=== PATIENT | male | born 1970 | race Caucasian/White ===

== ENCOUNTER 2018-02-10 08:46 | Emergency (ER) | payer MEDICARE ==
[~2018-02-10] VITALS: Ht 177.8 cm; Wt 110.0 kg
[~2018-02-10 08:46] MED LIST: AMOXICILLIN500 MG PO; APAP/HYDRO325 MG/10; ATENOLOL50 MG; ATENOLOL50 MG PO; AUGMENTIN875 MG OR; BENADRYL 25MG C25 MG PO; BENTYL20 MG OR; BUSPAR10 MG PO; BUTRANS10 MCG/HR TD; CELEBREX200 MG OR; CEPHALEXIN500 MG PO; CORTISPORIN OTI10 ML AS; CYMBALTA30 MG PO; CYMBALTA60 MG OR; DARVOCET-N 100100 MG OR; DOXYCYC MONO100 M1 OR; EFFEXOR XR37.5 MG OR; EFFEXOR75 MG OR; EXCEDRI1 OR; FLEXERIL OR; GEODON60 MG OR; HALDOL1 M1 PO; KLONOPIN0.5 MG PO; KLONOPIN1 MG OR; KLONOPIN1 MG PO; KLONOPIN2 MG OR; LASIX20 MG PO; LISINOPRIL20 MG OR; LORTAB 10 OR; LORTAB 10 PO; LORTAB 1010 MG PO; LORTAB 5 OR; LORTAB 5/3255 MG PO; LORTAB 7.5 OR; LORTAB 7.5 PO; LORTAB5 PO; LYRICA150 MG OR; LYRICA75 MG OR; MEDDOSEPAK OR; MELOXICAM7.5 MG OR; METHADONE10 M1 PO; MS CONTIN ER15 MG PO; MS CONTIN30 MG PO; MUPIROCIN2 % EX; NEURONTIN100 MG OR; NORCO1 TAB OR; NORCO1 TAB PO; ONDANSETRON4 MG PO; OXYCODONE HCL15 MG PO; OXYCODONE30 MG OR; PENICILLN VK500 M1 PO; PENICILLN VK500 MG OR; PENICILLN VK500 MG PO; PERCOCET 5/325M1 TAB OR; PERCOCET 5/325M1 TAB PO; QC IBUPROFEN200 MG OR; RESTORIL15 M1 OR; RESTORIL15 MG OR; ROBAXIN OR; SEPTRA DS1 TAB OR; TORADOL PO; TRAZODONE50 MG OR; ULTRACET OR; ULTRAM50 MG OR; VEETIDS250 MG OR; VICODIN ES1 TAB OR; VISTARIL 50MG C50 MG OR; VOLTAREN75 MG OR; ZOFRAN4 MG OR; ZOLOFT50 MG PO; ZONEGRAN100 M1 OR
[2018-02-10] MEDS ORDERED: GLIPIZIDE5 MG PO (09:51)
[2018-02-10] MEDS ORDERED: METFORMIN500 MG PO (09:51)
[2018-02-10 10:01] LABS: IMMATURE GRANULOCYTES 0.6 % (0.0-5.0); MEAN CORPUSCULAR HGB 25.8 pG CALC (26.0-32.0); MEAN CORPUSCULAR HGB CONC 31.8 g/L CALC (32.0-36.0); NEUT# 15.77 thou/uL (1.82-7.42); RED BLOOD COUNT 6.33 mill/uL (4.70-6.10); RED CELL DISTRI WIDTH 13.9 % (11.5-15.5)
[2018-02-10 10:02] LABS: HEMATOCRIT 51.3 % (39.0-50.0); HEMOGLOBIN 16.3 g/dl (14.0-18.0)
[2018-02-10 10:19] LABS: ALBUMIN 4.9 g/dL (3.2-5.0); ALKALINE PHOSPHATASE 92 u/l (38-126); ANION GAP 21 (6-22 (CALC)); BILIRUBIN, TOTAL 0.8 mg/dL (0.0-1.4); BUN 20 mg/dL (9-20); BUN/CREATININE RATIO 17 (12-20 (CALC)); CARBON DIOXIDE 23 mmol/l (22-30); CHLORIDE 99 mmol/l (95-108); CREATININE 1.2 mg/dL (0.7-1.3); GFR > 60 ML/MIN (>=60 (CALC)); GFR FOR AFR.AMER. > 60 ML/MIN (>=60 (CALC)); LIPASE 111 u/l (23-300); POTASSIUM 4.8 mmol/l (3.5-5.1); SGOT/AST 48 u/l (17-59); SODIUM 138 mmol/l (137-146)
[2018-02-10 10:20] LABS: TOTAL PROTEIN 8.7 g/dL (6.3-8.2)
[2018-02-10 12:52] LABS: COCAINE NEGATIVE (NEGATIVE); TETRAHYDROCANNABIONOL NEGATIVE (NEGATIVE)
[2018-02-10 12:53] LABS: BARBITURATES NEGATIVE (NEGATIVE); METHADONE NEGATIVE (NEGATIVE); OXCYCODONE POSITIVE (NEGATIVE); TRICYLIC ANTIDEPRESSANTS POSITIVE (NEGATIVE)
[2018-02-10] MEDS ORDERED: ONDANSETRON4 MG PO (15:31)
[2018-02-10] MEDS ORDERED: METRONIDAZOL250 MG PO (15:31)
[2018-02-10] MEDS ORDERED: BENTYL10 MG PO (15:31)
[2018-02-10 15:38] VITALS: BP 116/71
== END 2018-02-10 15:50 | disposition home or self-care (01) ==
LOC: ED 08:46
PROVIDERS: Emergency Medicine
DX: R19.7 Diarrhea, unspecified (principal); R11.0 Nausea; R10.31 Right lower quadrant pain
CPT/HCPCS: Q9967

== ENCOUNTER → 2018-03-25 | Outpatient (REF) | payer MEDICARE ==
[~2018-03-25] MED LIST changes: +BENTYL10 MG PO; +GLIPIZIDE5 MG PO; +METFORMIN500 MG PO; +METRONIDAZOL250 MG PO
[2018-03-25 11:22] LABS: IMMATURE GRANULOCYTES 0.4 % (0.0-5.0); MEAN CELL VOLUME 81.3 fL CALC (80.0-100.0); MEAN CORPUSCULAR HGB 25.7 pG CALC (26.0-32.0); MEAN CORPUSCULAR HGB CONC 31.7 g/L CALC (32.0-36.0); NEUT# 9.53 thou/uL (1.82-7.42); RED BLOOD COUNT 5.44 mill/uL (4.70-6.10); RED CELL DISTRI WIDTH 14.5 % (11.5-15.5)
[2018-03-25 11:25] LABS: HEMATOCRIT 44.2 % (39.0-50.0)
[2018-03-25 12:07] LABS: ALBUMIN 4.4 g/dL (3.2-5.0); BILIRUBIN, TOTAL 0.7 mg/dL (0.0-1.4); CHOLESTEROL HDL RATIO 4.6 (<4.4 (CALC)); POTASSIUM 4.7 mmol/l (3.5-5.1); TOTAL PROTEIN 7.4 g/dL (6.3-8.2)
== END | disposition home or self-care (01) ==
LOC: LAB 10:44
PROVIDERS: ATTEND Physician Assistant Medical
DX: R53.83 Other fatigue (principal); E55.9 Vitamin D deficiency, unspecified; E11.9 Type 2 diabetes mellitus without complications; E78.1 Pure hyperglyceridemia; M79.675 Pain in left toe(s)

== ENCOUNTER → 2018-03-26 | Outpatient (REF) | payer MEDICARE ==
[2018-03-26 10:24] LABS: URINE BILIRUBIN - DIPSTICK NEGATIVE (NEGATIVE); URINE BLOOD DIPSTICK NEGATIVE (NEGATIVE); URINE COLOR YELLOW; URINE GLUCOSE - DIPSTICK NEGATIVE (NEGATIVE); URINE KETONE NEGATIVE (NEGATIVE); URINE LEUK ESTERASE NEGATIVE (NEGATIVE); URINE NITRITE - DIPSTICK NEGATIVE (Negative); URINE PH 5.5 (4.5-8.0); URINE PROTEIN - DIPSTICK NEGATIVE (NEG-TRACE); URINE SPECIFIC GRAVITY 1.025; URINE UROBILINOGEN - DIPSTICK 0.2 E.U./dL (0.2)
== END | disposition home or self-care (01) ==
LOC: LABSPEC 10:15
PROVIDERS: ATTEND Physician Assistant Medical
DX: E11.9 Type 2 diabetes mellitus without complications (principal)

== ENCOUNTER → 2018-05-02 | Outpatient (REF) | payer MEDICARE ==
[2018-05-02 14:05] LABS: ALBUMIN 4.2 g/dL (3.2-5.0); ALKALINE PHOSPHATASE 83 u/l (38-126); ANION GAP 15 (6-22 (CALC)); BILIRUBIN, TOTAL 0.5 mg/dL (0.0-1.4); BUN 10 mg/dL (9-20); BUN/CREATININE RATIO 10 (12-20 (CALC)); CARBON DIOXIDE 27 mmol/l (22-30); CHLORIDE 98 mmol/l (95-108); POTASSIUM 4.3 mmol/l (3.5-5.1); SGOT/AST 50 u/l (17-59); SODIUM 136 mmol/l (137-146); TOTAL PROTEIN 7.3 g/dL (6.3-8.2)
[2018-05-02 14:06] LABS: GFR > 60 ML/MIN (>=60 (CALC)); GFR FOR AFR.AMER. > 60 ML/MIN (>=60 (CALC))
== END | disposition home or self-care (01) ==
LOC: LAB 12:14
PROVIDERS: ATTEND Nurse Practitioner Family
DX: R79.89 Other specified abnormal findings of blood chemistry (principal)

== ENCOUNTER 2019-01-05 14:44 | Emergency (ER) | payer MEDICARE ==
[~2019-01-05] VITALS: Ht 177.8 cm; Wt 110.0 kg
[2019-01-05] MEDS ORDERED: ALLOPURINOL300 MG PO (15:03)
[2019-01-05] MEDS ORDERED: TRAZODONE50 MG PO (15:03)
[2019-01-05] MEDS ORDERED: MOBIC7.5 M1 PO (15:04)
[2019-01-05 15:24] LABS: HEMATOCRIT 38.9 % (39.0-50.0); HEMOGLOBIN 12.6 g/dl (14.0-18.0); IMMATURE GRANULOCYTES 0.9 % (0.0-5.0); MEAN CELL VOLUME 79.7 fL CALC (80.0-100.0); MEAN CORPUSCULAR HGB 25.8 pG CALC (26.0-32.0); MEAN CORPUSCULAR HGB CONC 32.4 g/L CALC (32.0-36.0); NEUT# 7.62 thou/uL (1.82-7.42); RED BLOOD COUNT 4.88 mill/uL (4.70-6.10); RED CELL DISTRI WIDTH 13.2 % (11.5-15.5)
[2019-01-05 15:41] LABS: ANION GAP 14 (6-22 (CALC)); BUN 7 mg/dL (9-20); BUN/CREATININE RATIO 8 (12-20 (CALC)); CARBON DIOXIDE 28 mmol/l (22-30); CHLORIDE 93 mmol/l (95-108); CREATININE 0.9 mg/dL (0.7-1.3); GFR > 60 ML/MIN (>=60 (CALC)); GFR FOR AFR.AMER. > 60 ML/MIN (>=60 (CALC))
[2019-01-05 15:42] LABS: SODIUM 131 mmol/l (137-146)
[2019-01-05 16:29] VITALS: BP 108/73
== END 2019-01-05 16:29 | disposition home or self-care (01) ==
LOC: ED 14:44
PROVIDERS: Family Medicine
DX: R07.9 Chest pain, unspecified (principal); E11.9 Type 2 diabetes mellitus without complications; I10 Essential (primary) hypertension; Z79.84 Long term (current) use of oral hypoglycemic drugs

== ENCOUNTER 2019-11-24 10:10 | Inpatient (IN) | payer MEDICARE ==
[2019-11-24] VITALS (10 sets, daily range): BP systolic 99–122; BP diastolic 56–75
[~2019-11-24] VITALS: Ht 177.8 cm; Wt 120.8 kg
[~2019-11-24 10:10] MED LIST changes: +ALLOPURINOL300 MG PO; +MOBIC7.5 M1 PO; +TRAZODONE50 MG PO
--- NOTE | 2019-11-24 10:16 | NUR ---
PATIENT TO ROOM VIA WHEELCHAIR.
--- NOTE | 2019-11-24 10:36 | NUR ---
PT HYPOTENSIVE, PLACED IN [place] AND IVF BOLUS INITIATED. PT C/O INCREASED NAUSEA. NEW ORDERES RECEIVED
[2019-11-24 11:16] LABS: IMMATURE GRANULOCYTES 0.9 % (0.0-5.0); MEAN CELL VOLUME 78.3 fL CALC (80.0-100.0); MEAN CORPUSCULAR HGB 24.6 pG CALC (26.0-32.0); MEAN CORPUSCULAR HGB CONC 31.4 g/dL CAL (32.0-36.0); NEUT# 23.09 thou/uL (1.82-7.42); RED CELL DISTRI WIDTH 16.4 % (11.5-15.5)
[2019-11-24 11:27] LABS: ALBUMIN 5.3 g/dL (3.2-5.0); ALKALINE PHOSPHATASE 124 u/l (38-126); AMYLASE 114 u/l (30-110); ANION GAP 28 (6-22 (CALC)); BILIRUBIN, TOTAL 0.9 mg/dL (0.0-1.4); BUN 12 mg/dL (9-20); BUN/CREATININE RATIO 6 (12-20 (CALC)); CARBON DIOXIDE 20 mmol/l (22-30); CHLORIDE 94 mmol/l (95-108); CREATININE 1.9 mg/dL (0.7-1.3); GFR 38 ML/MIN (>=60 (CALC)); GFR FOR AFR.AMER. 46 ML/MIN (>=60 (CALC)); LIPASE 351 u/l (23-300); POTASSIUM 4.5 mmol/l (3.5-5.1); SGOT/AST 36 u/l (17-59); SODIUM 137 mmol/l (137-146); TOTAL PROTEIN 9.4 g/dL (6.3-8.2)
[2019-11-24 11:29] LABS: HEMATOCRIT 54.8 % (39.0-50.0); HEMOGLOBIN 17.2 g/dl (14.0-18.0)
[2019-11-24 11:39] LABS: MYOGLOBIN 253 ng/mL (0 - 121)
[2019-11-24] MEDS ORDERED: RYBELSUS14 MG PO (11:58)
[2019-11-24] MEDS ORDERED: GLIMEPIRIDE4 MG PO (11:59)
[2019-11-24] MEDS ORDERED: LEVEMIR100 UNIT/M SC (12:00)
[2019-11-24] MEDS ORDERED: CHLORPROMAZINE50 M1 PO (12:00)
[2019-11-24] MEDS ORDERED: MOVANTIK25 MG PO (12:00)
[2019-11-24] MEDS ORDERED: TRAZODONE100 MG PO (12:01)
[2019-11-24] MEDS ORDERED: GABAPENTIN600 MG PO (12:02)
[2019-11-24] MEDS ORDERED: TRULICITY1.5 MG/0.5 SC (12:02)
[2019-11-24] MEDS ORDERED: OXYCODONE20 M1 PO (12:02)
[2019-11-24] MEDS ORDERED: MELOXICAM7.5 MG PO (12:03)
[2019-11-24] MEDS ORDERED: TIZANIDINE HCL4 MG PO (12:04)
[2019-11-24] MEDS ORDERED: LISINOPRIL5 MG PO (12:04)
[2019-11-24] MEDS ORDERED: ALLOPURINOL100 MG PO (12:04)
--- NOTE | 2019-11-24 12:19 | NUR ---
PT STATES PAIN TO ABD IS 2/10 AND DENEIS NAUSEA AT THIS TIME. A FEW ICE CHIPS GIVEN
--- NOTE | 2019-11-24 12:25 | NUR ---
ACCUCHECK 336, PT REMAINS HYPOTENSIVE BUT STATES HE IS FEELING MUCH BETTER. IVF BOLUS CONTINUES. DR VELASCO UPDATED ON FINDINGS. MTOHER AT BEDSIDE.
--- NOTE | 2019-11-24 13:00 | NUR ---
PATIENT BP 85/64. DR VELASCO NOTIFIED. PATIENT RESTING IN STRETCHER IN NAD AND DENIES ANY NEEDS.
[2019-11-24 13:07] LABS: URINE BLOOD DIPSTICK SMALL (NEGATIVE); URINE COLOR YELLOW; URINE GLUCOSE - DIPSTICK 100 mg/dL (NEGATIVE); URINE KETONE TRACE mg/dL (NEGATIVE); URINE LEUK ESTERASE NEGATIVE (NEGATIVE); URINE NITRITE - DIPSTICK NEGATIVE (Negative); URINE PROTEIN - DIPSTICK 100 mg/dL (NEG-TRACE); URINE UROBILINOGEN - DIPSTICK 0.2 E.U./dL (0.2)
[2019-11-24 13:12] LABS: URINE BILIRUBIN - DIPSTICK SMALL (NEGATIVE); URINE RBC 0-2 RBC/hpf (0-5)
[2019-11-24 13:13] LABS: URINE EPITHELIAL CELLS FEW EPI/hpf (0-FEW); URINE MUCUS MODERATE hpf (NONE-FEW)
--- NOTE | 2019-11-24 13:51 | NUR ---
PT STATES ABD DISCOMFORT 2/10 AND NAUSEA IS RELEIVED. ADVISED OF NPO ADMIT STATUS. BP 100/57. SKIN PWD. PT IN NO DISTRESS
--- NOTE | 2019-11-24 14:38 | NUR ---
Admission Note Report Given to: SBAR PRINTED TO FLOOR Transported by: Wheelchair X Stretcher Transported with: X Nurse Transporter X Patent IV O2 X Neurology Manager Location: X ICU MS2
--- NOTE | 2019-11-24 14:40 | NUR ---
TRANSPORTED TO ICU ON THERAPEUTIC SUPPORT STAFF IN NO DISTRESS
--- NOTE | 2019-11-24 14:45 | NUR ---
PT ADMITTED TO ICU BED 4 FROM ED FOR DX:SBO,HYPOTENSION,DM,LEUKOCYTOSIS. PT TRANSPORTED TO ROOM VIA STRETCHER, PT STOOD AND TRANSFERRED SELF WITH SLOW STEADY GAIT. PT SR ON TELEMETRY, HR 95. PT DENIES SOB, CP OR DISTRESS AT THIS TIME. REMAINS HYPOTENSIVE B/P 99/67. AFEBRILE. RESPIRATIONS EVEN/UNLABORED, LS CLEAR THROUGHOUT, SA02@97%RA. ABDOMEN SOFT/DISTENDED/TENDER LLQ. BSX4 HYPOACTIVE. LBM 10-12-20. PT REPORTS ABDOMEN PAIN 6/10, AND NAUSEA PERSISTS. PT ORIENTED TO ROOM, CALL LIGHT AND UNIT. CALL LIGHT IN REACH. WILL MONITOR.
--- NOTE | 2019-11-24 16:00 | NUR ---
JASBIR PRUETT AT BEDSIDE FOR ASSESSMENT AND TO DISCUSS PLAN OF CARE, NEW ORDERS PT ALLOWED ICE CHIPS AND SIPS OF WATER FOR MEDICATION.
--- NOTE | 2019-11-24 18:00 | NUR ---
PT MOTHER ARRIVED AT BEDSIDE FOR VISIT. PT RESTING IN BED, STATED HIS PAIN WAS MUCH BETTER NOW, DENIES NAUSEA AT THIS TIME. CALL LIGHT IN REACH. WILL MONITOR.
--- NOTE | 2019-11-24 18:52 | NUR ---
PATIENT'S MOTHER HAS LEFT BEDSIDE.
--- NOTE | 2019-11-24 19:10 | NUR ---
PATIENT IS AWAKE, ALERT AND ORIENTED X4. ON RA, NO SOB NOTED. COMPLAINS OF PAIN IN ABDOMEN, RATES 5/10, DOES NOT REQUEST PAIN MEDICATION AT THIS TIME. COMPLAINS OF NAUSEA, REQUESTS ICE CHIPS, REPORTS IT HELPS WITH HIS NAUSEA. NURSE ASSESSMENT PERFORMED. IV X2 INTACT, FLUSH PROPERLY. NS INFUSING AT 100 ML/HR. AFEBRILE. ST ON TELEMETRY 104 BPM. BP 120'S SYSTOLIC. POC DISCUSSED FOR TONIGHT, PATIENT UNDERSTANDS AND AGREES. WATCHES TV, ICE CHIPS WILL BE PROVIDED. CALL LIGHT WITHIN REACH. SELF REPOSITIONS.
--- NOTE | 2019-11-24 20:10 | NUR ---
PATIENT IN SANDOVAL'S POSITION IN BED. WATCHES TV, NO ACUTE DISTRESS SHOWN. NO COMPLAINTS OR NEEDS AT THIS TIME. CALL LIGHT WITHIN REACH. BP WNL.
--- NOTE | 2019-11-24 20:10 | NUR ---
patient in rodriguez's position. watches tv, no acute distress shown. no complaints or needs at this time. call light within reach.
--- NOTE | 2019-11-24 20:47 | NUR ---
accucheck obtained 155 mg/dl. patient requests to have iv prn pain medication and nausea iv medication, will provide with bedtime medications.
--- NOTE | 2019-11-24 21:15 | NUR ---
iv dilaudid and iv zofran provided per request. patient able to swallow po meds without difficulty. lovenox provided, patient tolerated well. pt at first complained that the dilaudid iv was making him itch all over his body, and that he wanted benadryl. i let him know i would notify the doctor and might possibly change pain medication, then he reported it was not the iv dilaudid, that it was the zofran and that he has always had dilaudid in the past, he also said he was not sure that it could be the dressing on the iv's, i explained the dressing is to keep the iv site from bacteria/infection. he understands and agrees.
--- NOTE | 2019-11-24 21:24 | NUR ---
i have called and spoke to [facility] to notify of patient's complaint of itchiness after medications, maria c de dios will order medication for itchiness. also ordered if patient begins to vomit he will need an ng tube. also let him know of patient's blood sugar tonight and that levemir was held.
--- NOTE | 2019-11-24 23:13 | NUR ---
DR KENDRICK CALLED HERE FOR UPDATES OF PATIENT. UPDATES GIVEN. WILL CONTINUE TO MONITOR.
[2019-11-25] VITALS (8 sets, daily range): BP systolic 92–127; BP diastolic 57–87
--- NOTE | 2019-11-25 00:50 | NUR ---
PATIENT ABLE TO SWALLOW MEDICATIONS. SOFRAN GIVEN PER REQUEST. NO OTHER COMPLAINTS. SIP OF WATER AND ICE CHIPS PROVIDED. CALL LIGHT WITHIN REACH. EDUACTED ON NEW ANTIBITOIC ORDERED.
--- NOTE | 2019-11-25 03:59 | NUR ---
PATIENT RESTS WITH EYES CLOSED. NO ACUTE DISTRESS SHOWN. CALL LIGHT WITHIN REACH.
--- NOTE | 2019-11-25 05:09 | NUR ---
PT ABLE TO TOLERATE LAB WORK THIS AM.
[2019-11-25 05:27] LABS: IMMATURE GRANULOCYTES 0.6 % (0.0-5.0); MEAN CELL VOLUME 80.9 fL CALC (80.0-100.0); MEAN CORPUSCULAR HGB 24.6 pG CALC (26.0-32.0); MEAN CORPUSCULAR HGB CONC 30.4 g/dL CAL (32.0-36.0); NEUT# 7.07 thou/uL (1.82-7.42); RED BLOOD COUNT 5.29 mill/uL (4.70-6.10); RED CELL DISTRI WIDTH 14.7 % (11.5-15.5)
[2019-11-25 05:30] LABS: HEMATOCRIT 42.8 % (39.0-50.0)
[2019-11-25 05:47] LABS: BILIRUBIN, TOTAL 0.6 mg/dL (0.0-1.4); BUN 14 mg/dL (9-20); BUN/CREATININE RATIO 12 (12-20 (CALC)); CREATININE 1.1 mg/dL (0.7-1.3); GFR > 60 ML/MIN (>=60 (CALC)); GFR FOR AFR.AMER. > 60 ML/MIN (>=60 (CALC)); MAGNESIUM 1.7 mg/dL (1.6-2.3); POTASSIUM 4.5 mmol/l (3.5-5.1); SGOT/AST 33 u/l (17-59); SODIUM 138 mmol/l (137-146)
[2019-11-25 05:48] LABS: ALBUMIN 3.5 g/dL (3.2-5.0); ALKALINE PHOSPHATASE 54 u/l (38-126); ANION GAP 10 (6-22 (CALC)); CARBON DIOXIDE 25 mmol/l (22-30); CHLORIDE 108 mmol/l (95-108); TOTAL PROTEIN 6.4 g/dL (6.3-8.2)
--- NOTE | 2019-11-25 06:11 | NUR ---
PATIENT AWAKENS EASILY WHEN SPOKEN TO. ABLE TO SWALLOW HIS AM MEDS. REFUSES AT THIS TIME TO SIT UP TO USE URINAL. I CHECKED PELVIC REGION FOR ANY TENDERNESS, WHEN PALPATING PAIENT REPORTS HE HAS TO VOID, WHEN ASKED TO SIT UP TO VOID, HE REFUSES, STATES, "NOT RIGHT NOW." ZOFRAN GIVEN FOR NAUSEA. RATE PAIN 4/10 IN ABDOMEN. NO OTHER NEEDS OR COMPLAINTS AT THIS TIME. CALL LIGHT WITHIN REACH.
--- NOTE | 2019-11-25 07:00 | NUR ---
PT REPORT RECEIVED FROM PAINTER BARREL
--- NOTE | 2019-11-25 07:34 | NUR ---
PT STATES PASSING "GAS" BUT DOESNT FEEL THE URGE TO HAVE BM AT THIS TIME, PT DENIES ANY VOMITING OR NAUSEA, DENIES ANY PAIN AT THIS TIME
--- NOTE | 2019-11-25 08:26 | NUR ---
AFTER KENDRICK EXAMS PT, AND IF PT IS CLEARED WILL START PT ON CLEAR LIQUID DIET AT THIS TIME WILL KEEP HIM NPO. ABDOMEN SOFT NON TENDER
--- NOTE | 2019-11-25 09:20 | NUR ---
PT RESTING QUIETLY ON STRETCHER, NO COMPLAINTS AT THIS TIME. MEDICATIONS GIVEN WITH SIPS OF WATER, ADVISED OF CONTINUED NPO UNTIL SEEN BY DR. KENDRICK.
--- NOTE | 2019-11-25 09:33 | NUR ---
DR. KENDRICK HERE FOR EXAM
--- NOTE | 2019-11-25 09:50 | NUR ---
PT REQUESTING HIS DILAUDID FOR PAIN FOR HIS BACK
--- NOTE | 2019-11-25 09:51 | NUR ---
[address] URINE OUT
--- NOTE | 2019-11-25 11:00 | NUR ---
PT RESTING WATCHING TV, STATES NO NAUSEA/NO VOMITING, STILL DOES NOT FEEL LIKE HAVING A BM. ASKED FOR MORE ICE CHIPS. ALERT/ORIENTED X3.
--- NOTE | 2019-11-25 12:30 | NUR ---
PT SLEEPING AT THIS TIME, SANTIAGO NAUSEA. FLUIDS INFUSING
--- NOTE | 2019-11-25 13:35 | NUR ---
PT TAKEN TO CT. SCAN PER W/C, PT ALERT/ORIENTED X3, NO PAIN AT THIS TIME
--- NOTE | 2019-11-25 14:04 | NUR ---
PT SITTING UP IN BED, TALKING ON PHONE, NO DISCOMFORT NOTED. IV FLUIDS INFUSING, PT GIVEN ICE CHIPS PER REQUEST. VITAL SIGNS STABLE.
--- NOTE | 2019-11-25 15:05 | NUR ---
PT RESTING QUIETLY ON STRETCHER, WAITING FOR CT. SCAN RESULTS
--- NOTE | 2019-11-25 15:21 | NUR ---
PT STATES HIS BACK IS STARTING TO HURT AGAIN, ADVISED NOT TIME FOR HIS PAIN MEDICATION, HE STATES HE WILL JUST GO TO SLEEP THEM UNTIL IT IS LATER AND MIGHT BE TIME FOR HIS PAIN MEDICATION
--- NOTE | 2019-11-25 15:38 | NUR ---
MOTHER HERE TO VISIT AND BRING MEDICATION. PER REQUEST OF PHARMACY.
--- NOTE | 2019-11-25 16:15 | NUR ---
PT RESTING QUIETLY ON BED, MOTHER AT BEDSIDE, NO COMPLAINTS AT THIS TIME
--- NOTE | 2019-11-25 17:16 | NUR ---
PT STATES IS GETTING HUNGRY, WANTING TO KNOW RESULTS OF CAT SCAN, ADVISED THAT RESULTS HAVE NOT COME BACK. CALLED CT AND THEY SAID IT WAS PLACED ROUTINE AND COULD BE SEVERAL HOURS MORE BEFORE RESULTS COME BACK
--- NOTE | 2019-11-25 18:22 | NUR ---
PT RESTING QUIETLY ON STRETCHER, WATCHING TV, VITAL SIGNS STABLE
--- NOTE | 2019-11-25 19:45 | NUR ---
awakens easily. nad. no n/v. sheet metal technician shows sinus tach hr 101. #20 lt hand saline lock. #20 rac ns infusing @ 100cchr. cup of ice chips, juice x2 & diet lemon [place] soda given per request. voids per urinal. fall precautions cont.
--- NOTE | 2019-11-25 22:00 | NUR ---
watching tv. no c/o voiced.
[2019-11-26] VITALS (8 sets, daily range): BP systolic 110–134; BP diastolic 67–79
--- NOTE | 2019-11-26 00:01 | NUR ---
awakens immediately then c/o pain. medicated as ordered.
--- NOTE | 2019-11-26 02:00 | NUR ---
resting quietly. resps even & unlabored. no apparent distress.
--- NOTE | 2019-11-26 04:00 | NUR ---
eyes closed. no apparent distress. cardiac care nurse shows sinus rhythm hr 86.
--- NOTE | 2019-11-26 05:25 | NUR ---
lab here. blood drawn.
[2019-11-26 05:39] LABS: HEMATOCRIT 43.9 % (39.0-50.0); HEMOGLOBIN 13.2 g/dl (14.0-18.0); IMMATURE GRANULOCYTES 0.5 % (0.0-5.0); MEAN CELL VOLUME 81.4 fL CALC (80.0-100.0); MEAN CORPUSCULAR HGB 24.5 pG CALC (26.0-32.0); MEAN CORPUSCULAR HGB CONC 30.1 g/dL CAL (32.0-36.0); NEUT# 3.92 thou/uL (1.82-7.42); RED BLOOD COUNT 5.39 mill/uL (4.70-6.10); RED CELL DISTRI WIDTH 14.6 % (11.5-15.5)
[2019-11-26 05:56] LABS: ALBUMIN 3.4 g/dL (3.2-5.0); ALKALINE PHOSPHATASE 61 u/l (38-126); ANION GAP 9 (6-22 (CALC)); BILIRUBIN, TOTAL 0.4 mg/dL (0.0-1.4); BUN 7 mg/dL (9-20); BUN/CREATININE RATIO 7 (12-20 (CALC)); CARBON DIOXIDE 27 mmol/l (22-30); CHLORIDE 107 mmol/l (95-108); GFR > 60 ML/MIN (>=60 (CALC)); GFR FOR AFR.AMER. > 60 ML/MIN (>=60 (CALC)); POTASSIUM 4.2 mmol/l (3.5-5.1); SGOT/AST 26 u/l (17-59); SODIUM 139 mmol/l (137-146); TOTAL PROTEIN 6.2 g/dL (6.3-8.2)
--- NOTE | 2019-11-26 06:45 | NUR ---
REPORT RECEIVED FROM BOBBY LOJA. CARE ASSUMED.
--- NOTE | 2019-11-26 07:00 | NUR ---
PT RESTING IN BED WITH EYES CLOSED. PT AROUSES TO VERBAL STIMULI. PT IS ALERT AND ORIENTED X3. SHIFT ASSESSMENT COMPLETED AT THIS TIME. IV PATENT X2. PT HAS MULTIPLE JUICES AND DIET SODAS EMPTY AT BEDSIDE. EDUCATED PT ON AMOUNT OF SUGAR IN JUICE. PT QUESTIONING DIVERTICULOCIS. EDUCATION PROVIDED WELL. PT STATES THAT HIS PAIN IS A 7/10 DID NOT REQUEST ANY PAIN MEDICATION AT THIS TIME. CALL LIGHT IN REACH. WILL CONTINUE TO MONITOR.
--- NOTE | 2019-11-26 07:36 | NUR ---
PT MEDICATED WITH 0700 MEDS. PT STATES THAT HE HAS A HEADACHE. EXPLAINED THAT DILAUDID HAS SIDE EFFECTS AND COULD BE CAUSING HEADACHE. ALSO THE LACK OF CAFFEINE FOR THE LAST 3 DAYS CAN ATTRIBUTE WELL. DIET SODA PROVIDED. WILL REASSESS.
--- NOTE | 2019-11-26 08:00 | NUR ---
DR BARRERA AT BEDSIDE
--- NOTE | 2019-11-26 08:24 | NUR ---
DR TAI AT BEDSIDE.
--- NOTE | 2019-11-26 08:45 | NUR ---
OFFERRED PT MILK OF MAG DUE TO NO BM IN 3 DAYS. PT REFUSED STATING THAT HE IS JUST TO NAUSEATED. EXPLAINED IMPORTANCE OF BM. PT CONTINUED TO REFUSE.
--- NOTE | 2019-11-26 08:54 | NUR ---
PHONED FOR UPDATE. CODE GIVEN. UPDATE PROVIDED.
--- NOTE | 2019-11-26 10:17 | NUR ---
PT RESTING IN BED CONVERSING ON PHONE. CALL LIGHT IN REACH. WILL CONTINUE TOMONITOR.
--- NOTE | 2019-11-26 11:30 | NUR ---
mother at bedside. pt awaiting discharge.
--- NOTE | 2019-11-26 12:00 | NUR ---
IV site discontinued, cath intact. No edema , no redness, voices no discomfort.
--- NOTE | 2019-11-26 12:55 | NUR ---
DISCHARGE INSTRUCTIONS REVIEWED WITH PATIENT. PATIENT AND VERBALIZED UNDERSTANDING.
--- NOTE | 2019-11-26 13:05 | NUR ---
Discharge instructions given. Patient verbalizes understanding of same. Discharged in stable condition via Wheelchair to Home with mother. All belongings sent with pt.
== END 2019-11-26 13:05 | disposition home or self-care (01) | DRG 389 ==
LOC: ED 10:10 → ED-I 12:47 → ED 12:57 → MS2 12:58 → ICU 12:58
PROVIDERS: Emergency Medicine; Internal Medicine; Nurse Practitioner; ADMIT Internal Medicine; ATTEND Internal Medicine
DX: K56.600 Partial intestinal obstruction, unspecified as to cause (principal); N17.9 Acute kidney failure, unspecified; E87.2 Acidosis; E11.65 Type 2 diabetes mellitus with hyperglycemia; D72.829 Elevated white blood cell count, unspecified; E86.0 Dehydration; I95.9 Hypotension, unspecified; E86.9 Volume depletion, unspecified; I12.9 Hypertensive chronic kidney disease with stage 1 through stage 4 chronic kidney disease, or unspecified chronic kidney disease; E11.22 Type 2 diabetes mellitus with diabetic chronic kidney disease; N18.9 Chronic kidney disease, unspecified; E11.40 Type 2 diabetes mellitus with diabetic neuropathy, unspecified; G89.4 Chronic pain syndrome; F41.9 Anxiety disorder, unspecified; F32.9 Major depressive disorder, single episode, unspecified; Z79.4 Long term (current) use of insulin; Z87.442 Personal history of urinary calculi; Z79.891 Long term (current) use of opiate analgesic; Z20.828 Contact with and (suspected) exposure to other viral communicable diseases
CPT/HCPCS: J1650; Q9967

== ENCOUNTER 2021-01-01 10:57 | Emergency (ER) | payer MEDICARE ==
[~2021-01-01] VITALS: Ht 177.8 cm; Wt 106.8 kg
[~2021-01-01 10:57] MED LIST changes: +ALLOPURINOL100 MG PO; +CHLORPROMAZINE50 M1 PO; +GABAPENTIN600 MG PO; +GLIMEPIRIDE4 MG PO; +LEVEMIR100 UNIT/M SC; +LISINOPRIL5 MG PO; +MELOXICAM7.5 MG PO; +MOVANTIK25 MG PO; +OXYCODONE20 M1 PO; +RYBELSUS14 MG PO; +TIZANIDINE HCL4 MG PO; +TRAZODONE100 MG PO; +TRULICITY1.5 MG/0.5 SC
[2021-01-01] MEDS ORDERED: EPIPEN 2-P0.3 MG/0.3 IM (14:42)
[2021-01-01] MEDS ORDERED: PREDNISONE50 MG PO (14:42)
[2021-01-01 14:51] VITALS: BP 105/64
== END 2021-01-01 15:10 | disposition home or self-care (01) ==
LOC: ED 10:57
DX: L50.0 Allergic urticaria (principal); I10 Essential (primary) hypertension; E11.9 Type 2 diabetes mellitus without complications; F17.200 Nicotine dependence, unspecified, uncomplicated; Z87.442 Personal history of urinary calculi; Z79.4 Long term (current) use of insulin

== ENCOUNTER 2021-02-21 14:05 | Emergency (ER) | payer MEDICARE ==
[~2021-02-21] VITALS: Ht 177.8 cm; Wt 110.0 kg
[~2021-02-21 14:05] MED LIST changes: +EPIPEN 2-P0.3 MG/0.3 IM; +PREDNISONE50 MG PO
[2021-02-21 15:06] VITALS: BP 140/84
== END 2021-02-21 15:05 | disposition home or self-care (01) ==
LOC: ED 14:05
DX: U07.1 COVID-19 (principal); I10 Essential (primary) hypertension; E11.9 Type 2 diabetes mellitus without complications; F17.200 Nicotine dependence, unspecified, uncomplicated

== ENCOUNTER 2021-09-03 11:10 | Emergency (ER) | payer MEDICARE ==
[~2021-09-03] VITALS: Ht 177.8 cm; Wt 95.0 kg
[~2021-09-03 11:10] MED LIST changes: +ADIPEX-P37.5 MG PO; +MIDODRINE10 MG PO
[2021-09-03 11:30] VITALS: BP 145/89
[2021-09-03 13:03] VITALS: BP 145/89
[2021-09-03] MEDS ORDERED: BACTRIM DS1 TAB PO (13:21)
[2021-09-03] MEDS ORDERED: PERMETHRIN5 % EX (13:21)
[2021-09-03] MEDS ORDERED: CEPHALEXIN500 M1 PO (13:21)
== END 2021-09-03 13:28 | disposition home or self-care (01) ==
LOC: ED 11:10
DX: L73.9 Follicular disorder, unspecified (principal); B86 Scabies; I10 Essential (primary) hypertension; E11.9 Type 2 diabetes mellitus without complications; F17.200 Nicotine dependence, unspecified, uncomplicated; Z20.822 Contact with and (suspected) exposure to COVID-19

== ENCOUNTER 2021-10-02 16:44 | Emergency (ER) | payer MEDICARE ==
[~2021-10-02] VITALS: Ht 177.8 cm; Wt 92.2 kg
[~2021-10-02 16:44] MED LIST changes: +BACTRIM DS1 TAB PO; +CEPHALEXIN500 M1 PO; +PERMETHRIN5 % EX
[2021-10-02 17:05] VITALS: BP 130/95
[2021-10-02 17:31] VITALS: BP 146/102
[2021-10-02 18:30] VITALS: BP 154/117
[2021-10-02] MEDS ORDERED: TORADOL PO (18:59)
[2021-10-02 19:00] VITALS: BP 161/106
[2021-10-02 19:30] VITALS: BP 162/117
[2021-10-02 19:36] VITALS: BP 160/109
== END 2021-10-02 19:37 | disposition home or self-care (01) ==
LOC: ED 16:44
DX: S16.1XXA Strain of muscle, fascia and tendon at neck level, initial encounter (principal); I10 Essential (primary) hypertension; E11.9 Type 2 diabetes mellitus without complications; F17.200 Nicotine dependence, unspecified, uncomplicated; X58.XXXA Exposure to other specified factors, initial encounter; Z98.1 Arthrodesis status

== ENCOUNTER 2022-04-20 18:28 | Emergency (ER) | payer MEDICARE ==
[2022-04-20] VITALS (14 sets, daily range): BP systolic 125–152; BP diastolic 79–107
[~2022-04-20] VITALS: Ht 177.8 cm; Wt 90.7 kg
[2022-04-20 19:02] LABS: BASO% 0.4 % (0-3); EOS% 0.8 % (0-8); HEMATOCRIT 43.6 % (39.0-50.0); HEMOGLOBIN 14.2 g/dl (14.0-18.0); IMMATURE GRANULOCYTES 0.3 % (0.0-5.0); MEAN CELL VOLUME 80.4 fL CALC (80.0-100.0); MEAN CORPUSCULAR HGB 26.2 pG CALC (26.0-32.0); MEAN CORPUSCULAR HGB CONC 32.6 g/dL CAL (32.0-36.0); MONO% 8.5 % (2-13); NEUT# 5.19 thou/uL (1.82-7.42); RED BLOOD COUNT 5.42 mill/uL (4.70-6.10); RED CELL DISTRI WIDTH 13.3 % (11.5-15.5)
[2022-04-20 19:15] LABS: ALBUMIN 3.9 g/dL (3.2-5.0); ALKALINE PHOSPHATASE 66 u/l (38-126); ANION GAP 12 (6-22 (CALC)); BILIRUBIN, TOTAL 0.2 mg/dL (0.2-1.3); BUN 3 mg/dL (9-20); BUN/CREATININE RATIO 4 (12-20 (CALC)); CARBON DIOXIDE 24 mmol/l (22-30); CHLORIDE 103 mmol/l (95-108); CREATININE 0.9 mg/dL (0.7-1.3); GFR FOR AFR.AMER. > 60 ML/MIN (>=60 (CALC)); GFR OTHER RACES > 60 ML/MIN (>=60 (CALC)); POTASSIUM 3.1 mmol/l (3.5-5.1); SGOT/AST 27 u/l (17-59); SODIUM 136 mmol/l (137-146); TOTAL PROTEIN 6.4 g/dL (6.3-8.2)
[2022-04-20 19:27] LABS: URINE BILIRUBIN - DIPSTICK NEGATIVE (NEGATIVE); URINE BLOOD DIPSTICK MODERATE (NEGATIVE); URINE COLOR YELLOW; URINE GLUCOSE - DIPSTICK 250 mg/dL (NEGATIVE); URINE KETONE NEGATIVE (NEGATIVE); URINE LEUK ESTERASE NEGATIVE (NEGATIVE); URINE PH 6.5 (4.5-8.0); URINE PROTEIN - DIPSTICK NEGATIVE (NEG-TRACE)
[2022-04-20 19:28] LABS: URINE NITRITE - DIPSTICK NEGATIVE (Negative)
[2022-04-20 19:37] LABS: URINE SQUAMOUS EPITHELIAL CELL MODERATE EPI/hpf (0-FEW)
[2022-04-20] MEDS ORDERED: MEDDOSEPAK PO (21:08)
[2022-04-20] MEDS ORDERED: KEFLEX500 MG PO (21:08)
== END 2022-04-20 21:46 | disposition home or self-care (01) ==
LOC: ED 18:28
PROVIDERS: Emergency Medicine; Family Medicine
DX: J45.901 Unspecified asthma with (acute) exacerbation (principal); N39.0 Urinary tract infection, site not specified; F19.10 Other psychoactive substance abuse, uncomplicated; I10 Essential (primary) hypertension; E11.9 Type 2 diabetes mellitus without complications; F17.200 Nicotine dependence, unspecified, uncomplicated; Z77.098 Contact with and (suspected) exposure to other hazardous, chiefly nonmedicinal, chemicals

== ENCOUNTER 2022-05-19 12:19 | Observation (INO) | payer MEDICARE ==
[2022-05-19] VITALS (8 sets, daily range): BP systolic 136–149; BP diastolic 90–98
[~2022-05-19] VITALS: Ht 177.8 cm; Wt 83.4 kg
[~2022-05-19 12:19] MED LIST changes: +KEFLEX500 MG PO; +MEDDOSEPAK PO
[2022-05-19] MEDS ORDERED: TRAZODONE50 MG PO (12:42)
[2022-05-19] MEDS ORDERED: CHLORPROMAZINE100 MG PO (12:43)
[2022-05-19] MEDS ORDERED: KLONOPIN1 MG PO (12:44)
[2022-05-19] MEDS ORDERED: AMBIEN5 MG PO (12:44)
[2022-05-19 12:56] LABS: BASO% 0.4 % (0-3); EOS% 2.6 % (0-8); HEMATOCRIT 48.4 % (39.0-50.0); HEMOGLOBIN 15.6 g/dl (14.0-18.0); IMMATURE GRANULOCYTES 0.2 % (0.0-5.0); LYMPH% 21.1 % (15-41); MEAN CELL VOLUME 81.1 fL CALC (80.0-100.0); MEAN CORPUSCULAR HGB 26.1 pG CALC (26.0-32.0); MEAN CORPUSCULAR HGB CONC 32.2 g/dL CAL (32.0-36.0); MONO% 8.4 % (2-13); NEUT# 3.13 thou/uL (1.82-7.42); NEUT% 67.3 % (42-76); RED BLOOD COUNT 5.97 mill/uL (4.70-6.10); RED CELL DISTRI WIDTH 13.5 % (11.5-15.5)
[2022-05-19 13:11] LABS: PROTHROMBIN TIME 10.4 SECONDS (9.0-12.5)
[2022-05-19 13:15] LABS: ALBUMIN 4.2 g/dL (3.2-5.0); ALKALINE PHOSPHATASE 74 u/l (38-126); ANION GAP 12 (6-22 (CALC)); BILIRUBIN, TOTAL 0.2 mg/dL (0.2-1.3); BUN 4 mg/dL (9-20); BUN/CREATININE RATIO 4 (12-20 (CALC)); CARBON DIOXIDE 26 mmol/l (22-30); CHLORIDE 104 mmol/l (95-108); CREATININE 0.9 mg/dL (0.7-1.3); GFR FOR AFR.AMER. > 60 ML/MIN (>=60 (CALC)); GFR OTHER RACES > 60 ML/MIN (>=60 (CALC)); POTASSIUM 3.7 mmol/l (3.5-5.1); SGOT/AST 30 u/l (17-59); SODIUM 138 mmol/l (137-146)
[2022-05-19] MEDS ORDERED: NOVOLIN N100 UNIT SC (16:31)
[2022-05-19] MEDS ORDERED: GLIMEPIRIDE2 MG PO (16:31)
[2022-05-20] VITALS (10 sets, daily range): BP systolic 101–161; BP diastolic 60–103
[2022-05-20 05:17] LABS: BASO% 0.5 % (0-3); EOS% 2.9 % (0-8); HEMATOCRIT 43.9 % (39.0-50.0); HEMOGLOBIN 14.3 g/dl (14.0-18.0); IMMATURE GRANULOCYTES 0.3 % (0.0-5.0); LYMPH% 27.6 % (15-41); MEAN CORPUSCULAR HGB 26.4 pG CALC (26.0-32.0); MEAN CORPUSCULAR HGB CONC 32.6 g/dL CAL (32.0-36.0); MONO% 8.5 % (2-13); NEUT# 3.48 thou/uL (1.82-7.42); NEUT% 60.2 % (42-76); RED BLOOD COUNT 5.42 mill/uL (4.70-6.10); RED CELL DISTRI WIDTH 13.4 % (11.5-15.5)
[2022-05-20 05:50] LABS: ALBUMIN 3.8 g/dL (3.2-5.0); ALKALINE PHOSPHATASE 65 u/l (38-126); ANION GAP 9 (6-22 (CALC)); BUN 7 mg/dL (9-20); BUN/CREATININE RATIO 9 (12-20 (CALC)); CARBON DIOXIDE 27 mmol/l (22-30); CHLORIDE 104 mmol/l (95-108); CREATININE 0.8 mg/dL (0.7-1.3); GFR FOR AFR.AMER. > 60 ML/MIN (>=60 (CALC)); GFR OTHER RACES > 60 ML/MIN (>=60 (CALC)); POTASSIUM 3.7 mmol/l (3.5-5.1); SGOT/AST 26 u/l (17-59); SODIUM 137 mmol/l (137-146); TOTAL PROTEIN 6.2 g/dL (6.3-8.2)
[2022-05-20 05:52] LABS: BILIRUBIN, TOTAL 0.3 mg/dL (0.2-1.3)
[2022-05-20] MEDS ORDERED: MEDDOSEPAK PO (11:15)
[2022-05-20] MEDS ORDERED: MECLIZINE 2525 MG PO (11:15)
[2022-05-20] MEDS ORDERED: OMNICEF300 M1 PO (11:15)
[2022-05-21 04:32] VITALS: BP 122/81
[2022-05-21 06:29] VITALS: BP 110/78
[2022-05-21 08:00] VITALS: BP 110/78
[2022-05-21] MEDS ORDERED: FLEXERIL5 M1 PO (11:11)
[2022-05-21 12:00] VITALS: BP 110/78
[2022-05-21 14:57] VITALS: BP 113/76
== END 2022-05-21 16:15 | disposition home or self-care (01) ==
LOC: ED 12:19 → ED-I 15:10 → ED 15:29 → MS2 15:30
PROVIDERS: Family Medicine; ADMIT Internal Medicine; ATTEND Internal Medicine
DX: G45.9 Transient cerebral ischemic attack, unspecified (principal); J06.9 Acute upper respiratory infection, unspecified; I12.9 Hypertensive chronic kidney disease with stage 1 through stage 4 chronic kidney disease, or unspecified chronic kidney disease; E11.22 Type 2 diabetes mellitus with diabetic chronic kidney disease; N18.9 Chronic kidney disease, unspecified; E11.40 Type 2 diabetes mellitus with diabetic neuropathy, unspecified; G89.4 Chronic pain syndrome; F41.9 Anxiety disorder, unspecified; F32.9 Major depressive disorder, single episode, unspecified; F17.200 Nicotine dependence, unspecified, uncomplicated; Z79.4 Long term (current) use of insulin; Z87.442 Personal history of urinary calculi; Z20.822 Contact with and (suspected) exposure to COVID-19
CPT/HCPCS: J2060; Q9967

== ENCOUNTER 2022-07-22 01:34 | Observation (INO) | payer MEDICARE ==
[~2022-07-22] VITALS: Ht 177.8 cm; Wt 81.0 kg
[~2022-07-22 01:34] MED LIST changes: +AMBIEN5 MG PO; +CHLORPROMAZINE100 MG PO; +FLEXERIL5 M1 PO; +GLIMEPIRIDE2 MG PO; +MECLIZINE 2525 MG PO; +NOVOLIN N100 UNIT SC; +OMNICEF300 M1 PO
[2022-07-22] MEDS ORDERED: TOPIRAMATE50 MG PO (02:13)
[2022-07-22 02:17] LABS: BASO% 0.1 % (0-3); EOS% 0.2 % (0-8); HEMATOCRIT 44.8 % (39.0-50.0); HEMOGLOBIN 14.8 g/dl (14.0-18.0); IMMATURE GRANULOCYTES 1.1 % (0.0-5.0); LYMPH% 6.6 % (15-41); MEAN CELL VOLUME 82.1 fL CALC (80.0-100.0); MEAN CORPUSCULAR HGB 27.1 pG CALC (26.0-32.0); MONO% 5.5 % (2-13); NEUT# 11.74 thou/uL (1.82-7.42); NEUT% 86.5 % (42-76); RED BLOOD COUNT 5.46 mill/uL (4.70-6.10); RED CELL DISTRI WIDTH 13.7 % (11.5-15.5)
[2022-07-22 02:40] LABS: ALBUMIN 3.8 g/dL (3.2-5.0); ALKALINE PHOSPHATASE 84 u/l (38-126); AMYLASE 56 u/l (30-110); BILIRUBIN, TOTAL 0.4 mg/dL (0.2-1.3); BUN 8 mg/dL (9-20); BUN/CREATININE RATIO 6 (12-20 (CALC)); CHLORIDE 111 mmol/l (95-108); CREATININE 1.4 mg/dL (0.7-1.3); GFR FOR AFR.AMER. > 60 ML/MIN (>=60 (CALC)); GFR OTHER RACES 53 ML/MIN (>=60 (CALC)); POTASSIUM 3.6 mmol/l (3.5-5.1); SGOT/AST 19 u/l (17-59); SODIUM 139 mmol/l (137-146); TOTAL PROTEIN 6.1 g/dL (6.3-8.2)
[2022-07-22 02:42] LABS: ANION GAP 11 (6-22 (CALC)); CARBON DIOXIDE 21 mmol/l (22-30)
[2022-07-22 03:23] LABS: URINE BILIRUBIN - DIPSTICK NEGATIVE (NEGATIVE); URINE BLOOD DIPSTICK TRACE-INTACT (NEGATIVE); URINE COLOR YELLOW; URINE GLUCOSE - DIPSTICK NEGATIVE (NEGATIVE); URINE KETONE TRACE mg/dL (NEGATIVE); URINE LEUK ESTERASE NEGATIVE (NEGATIVE); URINE PH 6.5 (4.5-8.0); URINE PROTEIN - DIPSTICK TRACE mg/dL (NEG-TRACE); URINE SPECIFIC GRAVITY <=1.005
[2022-07-22 03:26] LABS: URINE NITRITE - DIPSTICK NEGATIVE (Negative)
[2022-07-22 05:11] VITALS: BP 96/54
[2022-07-22 07:35] VITALS: BP 105/57
[2022-07-22 10:37] VITALS: BP 103/66
[2022-07-22 15:35] VITALS: BP 113/66
[2022-07-22 19:38] VITALS: BP 139/86
[2022-07-22 23:56] VITALS: BP 127/78
[2022-07-23 04:43] VITALS: BP 118/74
[2022-07-23 07:23] VITALS: BP 122/83
[2022-07-23 09:53] LABS: BASO% 0.2 % (0-3); EOS% 1.4 % (0-8); HEMATOCRIT 39.7 % (39.0-50.0); LYMPH% 26.8 % (15-41); MEAN CELL VOLUME 83.1 fL CALC (80.0-100.0); MEAN CORPUSCULAR HGB 27.2 pG CALC (26.0-32.0); MEAN CORPUSCULAR HGB CONC 32.7 g/dL CAL (32.0-36.0); MONO% 6.3 % (2-13); NEUT# 2.78 thou/uL (1.82-7.42); NEUT% 65.3 % (42-76); RED BLOOD COUNT 4.78 mill/uL (4.70-6.10); RED CELL DISTRI WIDTH 13.9 % (11.5-15.5)
[2022-07-23 10:09] LABS: ALBUMIN 3.3 g/dL (3.2-5.0); ALKALINE PHOSPHATASE 70 u/l (38-126); ANION GAP 10 (6-22 (CALC)); BUN 8 mg/dL (9-20); BUN/CREATININE RATIO 8 (12-20 (CALC)); CARBON DIOXIDE 20 mmol/l (22-30); CHLORIDE 113 mmol/l (95-108); GFR FOR AFR.AMER. > 60 ML/MIN (>=60 (CALC)); GFR OTHER RACES > 60 ML/MIN (>=60 (CALC)); POTASSIUM 3.7 mmol/l (3.5-5.1); SGOT/AST 23 u/l (17-59); SODIUM 140 mmol/l (137-146); TOTAL PROTEIN 5.7 g/dL (6.3-8.2)
[2022-07-23 10:17] LABS: BILIRUBIN, TOTAL 0.2 mg/dL (0.2-1.3)
[2022-07-23 11:02] VITALS: BP 133/91
[2022-07-23 11:04] VITALS: BP 133/91
== END 2022-07-23 15:03 | disposition home or self-care (01) ==
LOC: ED 01:34 → ED-I 03:50 → ED 04:18 → MS2 04:19
PROVIDERS: Emergency Medicine; Nurse Practitioner Family; ADMIT Internal Medicine; ATTEND Internal Medicine
DX: R55 Syncope and collapse (principal); R42 Dizziness and giddiness; F19.10 Other psychoactive substance abuse, uncomplicated; A64 Unspecified sexually transmitted disease; F41.9 Anxiety disorder, unspecified; F32.A Depression, unspecified; I12.9 Hypertensive chronic kidney disease with stage 1 through stage 4 chronic kidney disease, or unspecified chronic kidney disease; E11.22 Type 2 diabetes mellitus with diabetic chronic kidney disease; N18.9 Chronic kidney disease, unspecified; G89.4 Chronic pain syndrome; E11.40 Type 2 diabetes mellitus with diabetic neuropathy, unspecified; N17.9 Acute kidney failure, unspecified; D72.829 Elevated white blood cell count, unspecified; F15.10 Other stimulant abuse, uncomplicated; Z88.1 Allergy status to other antibiotic agents; Z79.84 Long term (current) use of oral hypoglycemic drugs; Z79.4 Long term (current) use of insulin; Z87.442 Personal history of urinary calculi; Z20.822 Contact with and (suspected) exposure to COVID-19

== ENCOUNTER 2022-08-13 09:39 | Emergency (ER) | payer MEDICARE ==
[~2022-08-13] VITALS: Ht 177.8 cm; Wt 79.8 kg
[2022-08-13] VITALS (7 sets, daily range): BP systolic 117–146; BP diastolic 83–93
[~2022-08-13 09:39] MED LIST changes: +TOPIRAMATE50 MG PO
[2022-08-13 10:33] LABS: BASO% 0.2 % (0-3); EOS% 0.6 % (0-8); HEMATOCRIT 44.3 % (39.0-50.0); IMMATURE GRANULOCYTES 0.2 % (0.0-5.0); MEAN CELL VOLUME 80.7 fL CALC (80.0-100.0); MEAN CORPUSCULAR HGB 27.3 pG CALC (26.0-32.0); MEAN CORPUSCULAR HGB CONC 33.9 g/dL CAL (32.0-36.0); MONO% 9.9 % (2-13); NEUT# 7.69 thou/uL (1.82-7.42); NEUT% 78.1 % (42-76); RED BLOOD COUNT 5.49 mill/uL (4.70-6.10); RED CELL DISTRI WIDTH 13.2 % (11.5-15.5)
[2022-08-13 11:05] LABS: ALKALINE PHOSPHATASE 78 u/l (38-126); ANION GAP 15 (6-22 (CALC)); BUN 8 mg/dL (9-20); BUN/CREATININE RATIO 9 (12-20 (CALC)); CARBON DIOXIDE 23 mmol/l (22-30); CHLORIDE 102 mmol/l (95-108); CREATININE 0.9 mg/dL (0.7-1.3); GFR FOR AFR.AMER. > 60 ML/MIN (>=60 (CALC)); GFR OTHER RACES > 60 ML/MIN (>=60 (CALC)); POTASSIUM 3.3 mmol/l (3.5-5.1); SGOT/AST 33 u/l (17-59); SODIUM 136 mmol/l (137-146)
[2022-08-13 11:06] LABS: ALBUMIN 4.2 g/dL (3.2-5.0); BILIRUBIN, TOTAL 1.1 mg/dL (0.2-1.3); TOTAL PROTEIN 7.1 g/dL (6.3-8.2)
== END 2022-08-13 12:16 ==
LOC: ED 09:39
PROVIDERS: Family Medicine
DX: M65.841 Other synovitis and tenosynovitis, right hand (principal); I10 Essential (primary) hypertension; E11.9 Type 2 diabetes mellitus without complications; J45.909 Unspecified asthma, uncomplicated; F17.290 Nicotine dependence, other tobacco product, uncomplicated; Z79.84 Long term (current) use of oral hypoglycemic drugs; Z79.4 Long term (current) use of insulin; Z20.822 Contact with and (suspected) exposure to COVID-19

== ENCOUNTER 2022-08-21 08:47 | Emergency (ER) | payer MEDICARE ==
[~2022-08-21] VITALS: Ht 177.8 cm; Wt 88.5 kg
[2022-08-21 08:51] VITALS: BP 153/106
[2022-08-21 09:00] VITALS: BP 145/103
[2022-08-21 09:14] VITALS: BP 145/103
== END 2022-08-21 09:20 | disposition home or self-care (01) ==
LOC: ED 08:47
DX: Z48.01 Encounter for change or removal of surgical wound dressing (principal); I10 Essential (primary) hypertension; E11.9 Type 2 diabetes mellitus without complications; F17.200 Nicotine dependence, unspecified, uncomplicated; Z79.4 Long term (current) use of insulin; Z79.84 Long term (current) use of oral hypoglycemic drugs; Z98.890 Other specified postprocedural states

== ENCOUNTER 2023-10-23 12:50 | Emergency (ER) | payer MEDICARE ==
[~2023-10-23] VITALS: Ht 177.8 cm; Wt 72.0 kg
[2023-10-23] VITALS (9 sets, daily range): BP systolic 152–181; BP diastolic 88–111
[~2023-10-23 12:50] MED LIST changes: +IBUPROFEN600 MG PO; +LANTUS100 UNIT
[2023-10-23 13:23] LABS: BASO% 0.5 % (0-3); EOS% 2.3 % (0-8); HEMATOCRIT 45.1 % (39.0-50.0); IMMATURE GRANULOCYTES 0.1 % (0.0-5.0); LYMPH% 13.8 % (15-41); MEAN CELL VOLUME 82.6 fL CALC (80.0-100.0); MEAN CORPUSCULAR HGB 27.5 pG CALC (26.0-32.0); MEAN CORPUSCULAR HGB CONC 33.3 g/dL CAL (32.0-36.0); MONO% 6.1 % (2-13); NEUT# 6.06 thou/uL (1.82-7.42); NEUT% 77.2 % (42-76); RED BLOOD COUNT 5.46 mill/uL (4.70-6.10); RED CELL DISTRI WIDTH 14.3 % (11.5-15.5)
[2023-10-23 13:36] LABS: ALBUMIN 4.2 g/dL (3.2-5.0); BILIRUBIN, TOTAL 1.1 mg/dL (0.2-1.3); CREATININE 0.9 mg/dL (0.7-1.3); POTASSIUM 3.6 mmol/l (3.5-5.1); TOTAL PROTEIN 6.7 g/dL (6.3-8.2)
[2023-10-23] MEDS ORDERED: ACETAMINOPHEN 500 MG TAB PO ONE (13:40)
== END 2023-10-23 16:41 | disposition home or self-care (01) ==
LOC: ED 12:50
PROVIDERS: Family Medicine
DX: R82.5 Elevated urine levels of drugs, medicaments and biological substances (principal); R07.9 Chest pain, unspecified; I10 Essential (primary) hypertension; E11.9 Type 2 diabetes mellitus without complications; J45.909 Unspecified asthma, uncomplicated; F17.200 Nicotine dependence, unspecified, uncomplicated; Z79.4 Long term (current) use of insulin